=== PATIENT | male | born 1945 | race Caucasian/White ===

== ENCOUNTER 2018-04-25 10:22 | Inpatient (IN) ==
[2018-04-25] MEDS ORDERED: Artificial Tears SOLN 15 ML BOTTLE BOTH EYES PRN (13:09)
[2018-04-25] MEDS ORDERED: Naloxone 0.4 MG/ML INJ IVP PRN (13:09)
--- NOTE | 2018-04-25 14:14 | Pulmonology History & Physical ---
<Rickey Orellana W - Last Filed: 04/25/18 14:38> Date of Encounter: 04/25/18 History of Present Illness HPI: Mr. Alcantar is a 72 year old male Medications and Allergies Atorvastatin Calcium [Lipitor] 80 mg PO HS 04/25/18 [History] Baclofen 20 mg PO QID 04/25/18 [History] DULoxetine [Cymbalta] 30 mg PO DAILY 04/25/18 [History] Finasteride [Proscar] 5 mg PO DAILY 04/25/18 [History] Omeprazole [PriLOSEC] 40 mg PO DAILY 04/25/18 [History] Tamsulosin [Flomax] 0.4 mg PO DAILY 04/25/18 [History] amLODIPine [Norvasc] 5 mg PO DAILY 04/25/18 [History] diazePAM [Valium] 5 mg PO BID 04/25/18 [History] 3 Allergy/AdvReac Type Severity Reaction Status Date / Time gabapentin Allergy Unknown unknown Verified 04/25/18 14:12 morphine Allergy Unknown unknown Verified 04/25/18 14:12 All Systems: The remainder of the systems were reviewed and are negative Physical Examination Vital Signs: Vital Signs, Last 4 Hours Temp Pulse Resp BP Pulse Ox 04/25/18 14:00 49 14 107/68 100 04/25/18 13:00 98.4 F 49 14 113/70 100 04/25/18 12:45 14 100 Results - Laboratory Findings Abnormal lab findings: Abnormal lab results Lactic Acid 2.8 mmol/L (0.5-2.2) H 04/25/18 13:25 - Attending Attestation I examined this patient and my medical decision-making was reviewed with the Resident Physician. I agree with the documented findings, disposition and treatment plan as described except to the extent set forth below. We independently had [id number] contact with the patient Patient seen and examined at bedside Labs, radiology, chart personally reviewed. Management was reviewed during multidisciplinary critical care rounds. 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 The patient has a chronic left-sided weakness but otherwise no focal deficit he arouses when he is off sedation and moves his right side purposefully head CT is without acute process. U tox negative for illicit ingestions Pulm: Acute respiratory failure likely secondary to hypoventilation the patient may also be suffering from pneumonia for which he would be at increased risk for aspiration because of his encephalopathy. He is currently on the ventilator with acceptable gas exchange chest x-ray was repeated on admission to the ICU which showed satisfactory placement of endotracheal tube Cards: Borderline hypotensive at the outside hospital emergency department I suspect it was related to medication effect including labetalol and propofol he is currently hemodynamically stable and heart rate is within normal limits he is a slight elevation his lactate which we will trend his received volume resuscitation at the outside hospital for concern of possibility of sepsis. There is no evidence of cardiac ischemia at this time GI: GI prophylaxis given Nutrition: Nothing by mouth for now Renal: No evidence of acute kidney injury or metabolic acidosis UOP Monitored, Cont to Trend sCr and monitor Electrolytes. ID: Possible sepsis secondary to aspiration pneumonia he is on antimicrobials, planning to de-escalate based upon culture and sensitivities Heme/Onc: Endo: Glucose Monitored Integ/MSK: Skin Care per routine ICU Nursing Protocol to prevent ulcers. Lines: All lines examined without evidence of infection : Dispo: Remain in ICU CODE: Full the patient's power of line producer his son and his brother were updated in the ICU <Rajeev Padilla - Last Filed: 04/25/18 15:09> Date of Encounter: 04/25/18 Time of Encounter: 14:13 Assessment and Plan (1) Acute respiratory failure Current visit: Yes Status: Acute Likely related to hypoventilation the setting of overdose. Aspiration pneumonia could also be contributing. Patient is currently on the ventilator with adequate oxygenation and ventilation. Continue mechanical ventilation overnight with plan for spontaneous awake trial on spontaneous breathing trial in the morning. Qualifiers: Respiratory failure complication: unspecified whether with hypoxia or hypercapnia Qualified Code(s): J96.00 - Acute respiratory failure, unspecified whether with hypoxia or hypercapnia (2) Acute encephalopathy Current visit: Yes Status: Acute Likely multifactorial in the setting of overdose as well as possible sepsis. CT of the head showed no acute cranial nerve abnormality. Patient does have known left-sided deficits but otherwise no new focal changes. Continue sedation weaning to Leena scale 2. (3) Overdose Current visit: Yes Status: Acute Concern for overdose on baclofen. Possibly due to over treatment of the patient 's pain at home. When discussing with the son he reports no recent suicidal ideation her of her thoughts that would suggest this is an intentional self- harm event. Urine drug screen performed in the emergency department was negative. Continue supportive care. Qualifiers: Encounter type: initial encounter Injury intent: undetermined intent Qualified Code(s): T50.904A - Poisoning by unspecified drugs, medicaments and biological substances, undetermined, initial encounter (4) Sepsis Current visit: Yes Status: Acute Possible. Could be secondary to aspiration pneumonia as discussed below. Lactate elevated at 2.8 however no signs of hypotension. Patient received adequate fluid hydration outside hospital and blood pressure stable. We will repeat lactate, blood and sputum cultures pending. Qualifiers: Sepsis type: sepsis due to unspecified organism Qualified Code(s): A41.9 - Sepsis, unspecified organism (5) Aspiration pneumonia Current visit: Yes Status: Acute Patient has left lower lobe opacity on chest x-ray in given the fact that he was found down for an unknown period of time he is at risk for aspiration. Given his leukocytosis that was found at the emergency department as well as elevated lactic acid we will treat empirically with Unasyn. Sputum culture has been ordered. Qualifiers: Aspiration pneumonia type: unspecified Laterality: left Lung location: lower lobe of lung Qualified Code(s): J69.0 - Pneumonitis due to inhalation of food and vomit (6) Hypertension Current visit: Yes Status: Acute Patient was hypertensive upon arrival to the emergency department however he became hypotensive, likely related to medication. Is normotensive at this time. We will hold home antihypertensives Qualifiers: Hypertension type: essential hypertension Qualified Code(s): I10 - Essential (primary) hypertension (7) GERD (gastroesophageal reflux disease) Current visit: Yes Status: Acute Protonix 40 mg IV daily while intubated for stress ulcer prophylaxis Qualifiers: Esophagitis presence: esophagitis presence not specified Qualified Code(s) : K21.9 - Gastro-esophageal reflux disease without esophagitis (8) History of CVA (cerebrovascular accident) Current visit: Yes Status: Acute With chronic left-sided deficits. Currently intubated and sedated so full neurologic exam is limited but upon arrival patient was awake and did not appear to have any new focal deficits. Head CT reviewed from [facility] showed no acute cranial process, CT of the cervical spine was also unremarkable. (9) DVT prophylaxis Current visit: Yes Status: Acute Heparin 5000 units subcutaneous twice a day History of Present Illness Chief complaint: AMS HPI: Mr. Alcantar is a 72 year old male with history of hypertension, CVA presented to outside hospital with altered mental status. Patient is currently intubated and sedated so history is obtained from the patient's son and brother as well as the medical record. Per the son's report the patient had been in his normal state of health recently although he did state that yesterday he seemed a little more out of it and was attempting to take extra doses of his baclofen. He was reporting pain in his left hip. He was with someone in the home yesterday afternoon who stated he was trying to take extra baclofen. When that person left he was in his normal state and then that person arrived this morning and found him very difficult to arouse and laying on the floor. His the room he was in was in disarray and there were open baclofen bottles. She was transported to the emergency department and remains somnolent and altered the decision was made to intubate. A short was apparently hypertensive on presentation and after rapid sequence intubation along with 2 doses of IV Lopressor he became hypotensive. Upon arrival to this facility patient's vital signs are stable. Past Med Surg Social Fam HX - Social History Smoking Status: Unknown if ever smoked ROS unobtainable: due to endotracheal tube All Systems: The remainder of the systems were reviewed and are negative Physical Examination Vital Signs: Vital Signs, Last 4 Hours Resp Pulse Ox 04/25/18 12:45 14 100 General appearance: comatose ENT: oropharynx moist Neck: supple Effort: normal Auscultation: bilateral: other Cardiovascular: other (regular rhythm, bradycardia) Gastrointestinal: normoactive bowel sounds Extremities: no cyanosis, no edema, no clubbing pupils equal and round, unable to assess due to mental status, other ( Contractures and flaccid paralysis noted to the left upper and lower extremity) Results - Laboratory Findings Abnormal lab findings: Abnormal lab results Lactic Acid 2.8 mmol/L (0.5-2.2) H 04/25/18 13:25
[2018-04-25 14:40] LABS: ABG Base Excess 1 mEq/L (-2 to 3); ABG HCO3 25 mEq/L (21-27); ABG Oxygen Saturation 98 % (95-98); ABG PCO2 38 mmHg (35-45); ABG PH 7.43 pH Units (7.32-7.45); ABG PO2 107 mmHg (85-104); ABG TCO2 26 mEq/L (20-26); Blood Gas Modality ASSIST CONTROL; Blood Gas PEEP 5 cm H2O; Blood Gas Respiration Rate 14; Blood Gas VT 500 cc
[2018-04-25 15:05] LABS: Basophils % 0.2 %; Hematocrit 42.1 % (37.5-50.1); Immature Granulocytes % 0.4 % (0-4); Lymphocytes # 0.9 K/mcL (0.6-4.6); Lymphocytes % 6.5 %; Mean Corpuscular HGB Conc 33.3 g/dL (31.6-35.5); Mean Corpuscular Hemoglobin 29.7 pg (28.0-33.3); Mean Corpuscular Volume 89.4 fL (83.0-100.0); Monocytes # 0.8 K/mcL (0.0-1.3); Monocytes % 6.2 %; Neutrophils # 11.4 K/mcL (1.6-8.9); Platelet Count 153 K/mcL (140-400); Red Blood Count 4.71 M/mcL (4.19-5.50); Red Cell Distribution Width 12.8 % (11.5-14.5); Segmented Neutrophils % 86.7 %
[2018-04-25 15:07] LABS: Prothrombin Time 11.8 Seconds (9.4-12.1)
[2018-04-25 15:14] LABS: Alanine Aminotransferase 14 Units/L (7-52); Albumin/Globulin Ratio 1.5 (1.1-2.2); Alkaline Phosphatase 83 Units/L (34-104); Aspartate Amino Transferase 19 Units/L (13-39); BUN/Creatinine Ratio 17 (6-26); Bilirubin,Direct 0.1 mg/dL (0.0-0.2); Bilirubin,Indirect 0.4 mg/dL (0.0-1.2); Bilirubin,Total 0.5 mg/dL (0.3-1.0); Blood Urea Nitrogen 18 mg/dL (8-23); Calcium 8.7 mg/dL (8.6-10.3); Carbon Dioxide 28 mEq/L (23-29); Chloride 107 mEq/L (98-107); Globulin 2.7 g/dL (2.4-3.5); Glucose 146 mg/dL (70-105); Magnesium 1.8 mg/dL (1.6-2.6); Osmolality,Calculated 297 (280-300); Potassium 4.1 mEq/L (3.5-5.1); Sodium 141 mEq/L (136-145); Total Protein 6.7 g/dL (6.4-8.9); eGFR For Non-African Americans > 60 (> 60)
--- NOTE | 2018-04-25 16:33 | Sepsis Event Note ---
Sepsis Reassessment Note - Evaluation Sepsis Screen: No Definite Risk Current Stage of Sepsis: sepsis (possible) Possible Source of Sepsis: pulmonary - Focused Exam Date of Encounter: 04/25/18 Time of Encounter: 16:31 Vital Signs: Vital Signs Temp Pulse Resp BP Pulse Ox 04/25/18 16:06 14 100 04/25/18 16:00 45 14 118/70 100 04/25/18 15:57 98.9 F 04/25/18 15:00 45 14 103/64 100 04/25/18 14:00 49 14 107/68 100 04/25/18 13:00 98.4 F 48 14 113/70 100 04/25/18 12:45 14 100 Respiratory Exam: Present: decreased breath sounds Cardiovascular Exam: Present: bradycardia Capillary Refill: < 2 seconds Peripheral Pulse Strength: 3+ normal Peripheral Pulse Location: Radial Skin Exam: normal turgor - Reassessment Comments Comments: Patient remained stable at this time with stable blood pressure not requiring vasopressor support. Sepsis remains possible but felt to be less likely. Continue to closely monitor the patient.
[2018-04-25] MEDS: *HR* Heparin 5,000 UNIT/ML VIAL SQ SCH (17:40)
[2018-04-25] MEDS: Ampicillin/Sulbactam 3,000 MG in 0.9 % Sodium Chloride Mini Bag 100 ML IVPB SCH ×2 (17:40→23:24)
[2018-04-25] MEDS: Artificial Tears SOLN 15 ML BOTTLE BOTH EYES SCH ×3 (17:40→23:27)
[2018-04-25] MEDS: Chlorhexidine Rinse 15 ML MOUTHWASH MM SCH (20:19)
[2018-04-26] MEDS: FentaNYL (PF) 1,000 MCG in 0.9 % Sodium Chloride 80 ML IVC SCH ×2 (00:17→16:58)
[2018-04-26] MEDS: Artificial Tears SOLN 15 ML BOTTLE BOTH EYES SCH ×6 (03:53→23:26)
[2018-04-26 05:01] LABS: ABG Base Excess 2 mEq/L (-2 to 3); ABG HCO3 27 mEq/L (21-27); ABG Oxygen Saturation 97 % (95-98); ABG PCO2 39 mmHg (35-45); ABG PH 7.44 pH Units (7.32-7.45); ABG PO2 92 mmHg (85-104); ABG TCO2 28 mEq/L (20-26); Blood Gas Modality PRVC; Blood Gas PEEP 5 cm H2O; Blood Gas Respiration Rate 14; Blood Gas VT 500 cc
[2018-04-26] MEDS: *HR* Heparin 5,000 UNIT/ML VIAL SQ SCH ×2 (05:18→17:34)
[2018-04-26] MEDS: Ampicillin/Sulbactam 3,000 MG in 0.9 % Sodium Chloride Mini Bag 100 ML IVPB SCH ×4 (05:18→23:28)
[2018-04-26 06:07] LABS: Basophils % 0.3 %; Eosinophils % 0.1 %; Hemoglobin 14.2 g/dL (12.9-16.9); Immature Granulocytes % 0.5 % (0-4); Lymphocytes # 1.1 K/mcL (0.6-4.6); Mean Corpuscular HGB Conc 33.8 g/dL (31.6-35.5); Mean Corpuscular Volume 88.6 fL (83.0-100.0); Mean Platelet Volume 10.9 fL (9.4-12.4); Monocytes # 0.6 K/mcL (0.0-1.3); Monocytes % 6.3 %; Neutrophils # 8.2 K/mcL (1.6-8.9); Platelet Count 146 K/mcL (140-400); Red Blood Count 4.74 M/mcL (4.19-5.50); Segmented Neutrophils % 81.8 %
[2018-04-26 06:17] LABS: INR 1.1
[2018-04-26 06:25] LABS: Alanine Aminotransferase 14 Units/L (7-52); Albumin 4.1 g/dL (3.5-5.7); Albumin/Globulin Ratio 1.3 (1.1-2.2); Alkaline Phosphatase 92 Units/L (34-104); Aspartate Amino Transferase 25 Units/L (13-39); BUN/Creatinine Ratio 18 (6-26); Bilirubin,Direct 0.2 mg/dL (0.0-0.2); Bilirubin,Indirect 0.5 mg/dL (0.0-1.2); Bilirubin,Total 0.7 mg/dL (0.3-1.0); Blood Urea Nitrogen 15 mg/dL (8-23); Calcium 9.2 mg/dL (8.6-10.3); Carbon Dioxide 25 mEq/L (23-29); Chloride 107 mEq/L (98-107); Globulin 3.2 g/dL (2.4-3.5); Glucose 127 mg/dL (70-105); Osmolality,Calculated 294 (280-300); Potassium 3.3 mEq/L (3.5-5.1); Sodium 141 mEq/L (136-145); Total Protein 7.3 g/dL (6.4-8.9); eGFR For Non-African Americans > 60 (> 60)
[2018-04-26] MEDS ORDERED: Dexmedetomidine HCl 400 MCG/100 ML MLS IVC SCH (07:15)
--- NOTE | 2018-04-26 07:41 | Pulmonology Progress Note ---
<ReynaRickey W - Last Filed: 04/26/18 08:14> Date of Encounter: 04/26/18 Objective PUL Vital signs: Last Vital Signs Temp 98.6 F 04/26/18 07:44 Pulse 61 04/26/18 08:00 Resp 12 04/26/18 08:00 BP 170/91 04/26/18 08:00 Pulse Ox 97 04/26/18 08:00 Ventilator Settings Ventilator Settings: Ventilator Settings, Last 8 Hours Ventilator Tidal Volume 500 Setting Ventilator Tidal Volume 500 Setting Ventilator Tidal Volume 500 Setting Ventilator Tidal Volume 500 Setting Ventilator Tidal Volume 500 Setting Ventilator Tidal Volume 500 Setting Ventilator Tidal Volume 500 Setting Ventilator Tidal Volume 500 Setting Ventilator Tidal Volume 500 Setting Ventilator Tidal Volume 500 Setting Ventilator Tidal Volume 500 Setting Ventilator Tidal Volume 500 Setting Ventilator Tidal Volume 500 Setting Ventilator Respiratory Rate 14 Setting Ventilator Respiratory Rate 14 Setting Ventilator Respiratory Rate 14 Setting Ventilator Respiratory Rate 14 Setting Ventilator Respiratory Rate 14 Setting Ventilator Respiratory Rate 14 Setting Ventilator Respiratory Rate 14 Setting Ventilator Respiratory Rate 14 Setting Ventilator Respiratory Rate 14 Setting Ventilator Respiratory Rate 14 Setting Ventilator Respiratory Rate 14 Setting Ventilator Respiratory Rate 14 Setting Ventilator Respiratory Rate 14 Setting Actual Respiratory Rate 18 Actual Respiratory Rate 18 Actual Respiratory Rate 18 Actual Respiratory Rate 18 Actual Respiratory Rate 14 Actual Respiratory Rate 14 Actual Respiratory Rate 14 Actual Respiratory Rate 14 Actual Respiratory Rate 14 Actual Respiratory Rate 14 Actual Respiratory Rate 14 Actual Respiratory Rate 14 Positive End Expiratory 5 Pressure Positive End Expiratory 5 Pressure Positive End Expiratory 5 Pressure Positive End Expiratory 5 Pressure Positive End Expiratory 5 Pressure Positive End Expiratory 5 Pressure Positive End Expiratory 5 Pressure Positive End Expiratory 5 Pressure Positive End Expiratory 5 Pressure Positive End Expiratory 5 Pressure Positive End Expiratory 5 Pressure Positive End Expiratory 5 Pressure Positive End Expiratory 5 Pressure Peak Inspiratory Airway 7.2 Pressure Peak Inspiratory Airway 17 Pressure Peak Inspiratory Airway 7.2 Pressure Peak Inspiratory Airway 7.2 Pressure Peak Inspiratory Airway 25 Pressure Peak Inspiratory Airway 26 Pressure Peak Inspiratory Airway 28 Pressure Peak Inspiratory Airway 27 Pressure Peak Inspiratory Airway 27 Pressure Peak Inspiratory Airway 29 Pressure Peak Inspiratory Airway 20 Pressure Peak Inspiratory Airway 20 Pressure Results - Laboratory Findings CBC and BMP: 04/26/18 05:48 04/26/18 05:48 ABG ABG pH 7.44 pH Units (7.32-7.45) 04/26/18 04:55 ABG pCO2 39 mmHg (35-45) 04/26/18 04:55 ABG pO2 92 mmHg (85-104) 04/26/18 04:55 ABG O2 Saturation 97 % (95-98) 04/26/18 04:55 PT/INR, D-dimer PT 12.0 Seconds (9.4-12.1) 04/26/18 05:48 Abnormal lab findings: Abnormal lab results ABG Total CO2 28 mEq/L (20-26) H 04/26/18 04:55 Potassium 3.3 mEq/L (3.5-5.1) L 04/26/18 05:48 Glucose 127 mg/dL (70-105) H 04/26/18 05:48 POC Glucose 162 mg/dL (70-99) H 04/25/18 23:33 Troponin I 0.04 ng/mL (< 0.04) H* 04/25/18 19:25 - Microbiology Findings Microbiology Findings: Microbiology, Last 48 Hours 04/25/18 13:36 Blood Culture - Preliminary Peripheral Venipuncture Culture is incubating and being continuously monitored for growth. Final report to follow. 04/25/18 13:36 Blood Culture - Preliminary Peripheral Venipuncture Culture is incubating and being continuously monitored for growth. Final report to follow. - Clinical Findings Intake & Output: Intake & Output 04/25/18 04/26/18 04/26/18 23:59 07:59 15:59 Intake Total 214 / 214 170.5 / 170.5 Output Total 175 / 175 525 / 525 Balance 39 / 39 -354.5 / -354.5 Weight 88 kg Consult Discharge Plan - Plan Referrals: Stan Ambriz MD [Primary Care Provider] - - Attending Attestation I examined this patient and my medical decision-making was reviewed with the Resident Physician. I agree with the documented findings, disposition and treatment plan as described except to the extent set forth below. We independently had [id number] contact with the patient Patient seen and examined at bedside Labs, radiology, chart personally reviewed. Management was reviewed during multidisciplinary critical care rounds. PARK ATTENDANT: Patient remains encephalopathic with significant agitation during spontaneous awake trial today we will start Precedex and attempt to decrease/ stop propofol and continue low-dose fentanyl at this time. Likely restart low dose of baclofen to prevent withdrawal Pulm: Respiratory failure secondary to encephalopathy possibility of underlying aspiration pneumonia remains on the vent with acceptable gas exchange not a candidate for spontaneous breathing trial because he did not pass spontaneous awake trial we will reassess tomorrow or later in the day if agitation improved Cards: Hemodynamically stable continue to monitor GI: GI prophylaxis given Nutrition: Start enteral nutrition per dietary recommendations Renal: UOP Monitored, Cont to Trend sCr and monitor Electrolytes. ID: Possibility of aspiration pneumonia he is on appropriate antimicrobials for this with planned to de-escalate over the next 24-48 hours based upon cultures Heme/Onc: DVT prophylaxis given Endo: Glucose Monitored Integ/MSK: Skin Care per routine ICU Nursing Protocol to prevent ulcers. Lines: All lines examined without evidence of infection : Dispo: Remain in ICU today for ventilator management CODE: Full <Bryce Shaw - Last Filed: 04/26/18 14:56> Date of Encounter: 04/26/18 Time of Encounter: 07:45 Assessment and Plan (1) Acute encephalopathy Current Visit: Yes Status: Acute - Patient was admitted to the ICU because of acute encephalopathy. Etiology currently unknown. Likely due to baclofen overdose, patient was given propofol in the ED prior to intubation which can also contribute to encephalopathy. Patient also takes Cymbalta at home and that could also be a potential cause for his encephalopathy. Patient's urine drug screen was negative in the ED. His head CT was negative for any intracranial masses or hemorrhages. Currently patient is intubated and is getting propofol and fentanyl, RASS score : -4. We have tried to wean him off propofol but every time we do that, he gets agitated. - Patient respondsd to sternal rub and his pupils are reactive to light. However he is not responding to any commands. - continue to monitor signs of agitation. Allow time for the baclofen to get out of the system which can take up to 24-30 hours. Aim for weaning off the propofol if that makes the patient agitated. - Delirium precautions (2) Acute respiratory failure Current Visit: Yes Status: Acute - patient presented to the ICU because of acute respiratory failure and AMS requiring intubation. Currently he 's on ventilator with PEEP 5, FiO2: 30%. patient has been showing signs of agitation when he is weaned the pressors - we are going to make an attempt to wean off is sedatives in the near future to put him through CPAP trial. e Qualifiers: Respiratory failure complication: unspecified whether with hypoxia or hypercapnia Qualified Code(s): J96.00 - Acute respiratory failure, unspecified whether with hypoxia or hypercapnia (3) Pneumonia Current Visit: Yes Status: Acute - Patient's chest x-ray showed stable lungs with small left effusion with concerns for aspiration pneumonia. He was leukocytotic on admission with WBC: 13.1. He has been empirically given Unasyn. - On physical exam he is afebrile but does have bilateral wheezing, WBC is trending down (10.0), day 2 of Unasyn (3000mg) - His sputum/ blood cultures are pending. Going to de-escalate his antibiotics once we have the results from his cultures Qualifiers: Qualified Code(s): J18.9 - Pneumonia, unspecified organism (4) Sepsis Current Visit: Yes Status: Acute - Patient presented with leukocytosis (13.1), elevated lactate (2.7), with concerns for sepsis. His blood pressure was normal. HE received 2L Bolus NaCl in the ED. - currently source is likely due his aspiration pneumonia, he's on day 2 of Unasyn. -currently sepsis seems to have resolved. His white blood count is 10, repeat lactate is normal (1.7), patient is afebrile and is normotensive - sputum/blood cultures are pending, repeat lactate normal . de-escalate Abx once we have the culture sensitivities. Qualifiers: Sepsis type: sepsis due to unspecified organism Qualified Code(s): A41.9 - Sepsis, unspecified organism (5) GERD (gastroesophageal reflux disease) Current Visit: Yes Status: Acute - holding off on all his PO medications because the patient is intubated. - protonix 40 mg IV Qualifiers: Esophagitis presence: esophagitis presence not specified Qualified Code(s) : K21.9 - Gastro-esophageal reflux disease without esophagitis (6) Hypertension Current Visit: Yes Status: Acute - Has a history of hypertension. Takes 5 mg Norvasc at home. - Patient has been periodically hypotensive since he was admitted to ICU likely due to overdose of baclofen or usage of propofol for sedation overnight. We will hold off on his antihypertensive medication as of now. - Qualifiers: Hypertension type: essential hypertension Qualified Code(s): I10 - Essential (primary) hypertension (7) CVA (cerebral vascular accident) Current Visit: Yes Status: Acute -Patient has a history of CVA. He has a chronic left-sided deficits with foot drop. During this admission, patient's head CT at [facility] showed no evidence of intracranial hemorrhage, or masses. -It has been difficult to do a comprehensive neurological exam on the patient because he is intubated. - Neurological exam will be done once the patient is extubated. Qualifiers: Qualified Code(s): I63.9 - Cerebral infarction, unspecified (8) DVT prophylaxis Current Visit: Yes Status: Acute - SC Heparin 5000 units Subjective Principal diagnosis: alterd mental status Interval history: This is a 72-year-old male with a past medical history of CVA, hypertension who was admitted to the ICU yesterday because of altered mental status and acute respiratory failure likely due to baclofen overdose. No acute events overnight except for the fact that patient was agitated and not following commands. He was however, responsive to sternal rub and his pupils are reactive to light. It has been sedated on propofol and fentanyl overnight. He has been bradycardic for most of his stay in ICU with HR betwene 40-50. Objective PUL Vital signs: Last Vital Signs Temp 98.9 F 04/26/18 04:00 Pulse 61 04/26/18 07:00 Resp 17 04/26/18 07:24 BP 136/80 04/26/18 07:00 Pulse Ox 97 04/26/18 07:24 General appearance: comatose Effort: mildly labored Auscultation: bilateral: wheezes Gastrointestinal: soft, non-tender, non-distended Extremities: no cyanosis, no edema, no clubbing unable to assess due to mental status Ventilator Settings Ventilator Settings: Ventilator Settings, Last 8 Hours Ventilator Tidal Volume 500 Setting Ventilator Tidal Volume 500 Setting Ventilator Tidal Volume 500 Setting Ventilator Tidal Volume 500 Setting Ventilator Tidal Volume 500 Setting Ventilator Tidal Volume 500 Setting Ventilator Tidal Volume 500 Setting Ventilator Tidal Volume 500 Setting Ventilator Tidal Volume 500 Setting Ventilator Tidal Volume 500 Setting Ventilator Tidal Volume 500 Setting Ventilator Tidal Volume 500 Setting Ventilator Tidal Volume 500 Setting Ventilator Respiratory Rate 14 Setting Ventilator Respiratory Rate 14 Setting Ventilator Respiratory Rate 14 Setting Ventilator Respiratory Rate 14 Setting Ventilator Respiratory Rate 14 Setting Ventilator Respiratory Rate 14 Setting Ventilator Respiratory Rate 14 Setting Ventilator Respiratory Rate 14 Setting Ventilator Respiratory Rate 14 Setting Ventilator Respiratory Rate 14 Setting Ventilator Respiratory Rate 14 Setting Ventilator Respiratory Rate 14 Setting Ventilator Respiratory Rate 14 Setting Actual Respiratory Rate 18 Actual Respiratory Rate 18 Actual Respiratory Rate 18 Actual Respiratory Rate 14 Actual Respiratory Rate 14 Actual Respiratory Rate 14 Actual Respiratory Rate 14 Actual Respiratory Rate 14 Actual Respiratory Rate 14 Actual Respiratory Rate 14 Actual Respiratory Rate 14 Actual Respiratory Rate 14 Positive End Expiratory 5 Pressure Positive End Expiratory 5 Pressure Positive End Expiratory 5 Pressure Positive End Expiratory 5 Pressure Positive End Expiratory 5 Pressure Positive End Expiratory 5 Pressure Positive End Expiratory 5 Pressure Positive End Expiratory 5 Pressure Positive End Expiratory 5 Pressure Positive End Expiratory 5 Pressure Positive End Expiratory 5 Pressure Positive End Expiratory 5 Pressure Positive End Expiratory 5 Pressure Peak Inspiratory Airway 17 Pressure Peak Inspiratory Airway 7.2 Pressure Peak Inspiratory Airway 7.2 Pressure Peak Inspiratory Airway 25 Pressure Peak Inspiratory Airway 26 Pressure Peak Inspiratory Airway 28 Pressure Peak Inspiratory Airway 27 Pressure Peak Inspiratory Airway 27 Pressure Peak Inspiratory Airway 29 Pressure Peak Inspiratory Airway 20 Pressure Peak Inspiratory Airway 20 Pressure Peak Inspiratory Airway 19 Pressure Results - Laboratory Findings CBC and BMP: 04/26/18 05:48 04/26/18 05:48 ABG ABG pH 7.44 pH Units (7.32-7.45) 04/26/18 04:55 ABG pCO2 39 mmHg (35-45) 04/26/18 04:55 ABG pO2 92 mmHg (85-104) 04/26/18 04:55 ABG O2 Saturation 97 % (95-98) 04/26/18 04:55 PT/INR, D-dimer PT 12.0 Seconds (9.4-12.1) 04/26/18 05:48 Abnormal lab findings: Abnormal lab results ABG Total CO2 28 mEq/L (20-26) H 04/26/18 04:55 Potassium 3.3 mEq/L (3.5-5.1) L 04/26/18 05:48 Glucose 127 mg/dL (70-105) H 04/26/18 05:48 POC Glucose 162 mg/dL (70-99) H 04/25/18 23:33 Troponin I 0.04 ng/mL (< 0.04) H* 04/25/18 19:25 - Microbiology Findings Microbiology Findings: Microbiology, Last 48 Hours 04/25/18 13:36 Blood Culture - Preliminary Peripheral Venipuncture Culture is incubating and being continuously monitored for growth. Final report to follow. 04/25/18 13:36 Blood Culture - Preliminary Peripheral Venipuncture Culture is incubating and being continuously monitored for growth. Final report to follow. - Clinical Findings Intake & Output: Intake & Output 04/25/18 04/25/18 04/26/18 15:59 23:59 07:59 Intake Total 214 / 214 170.5 / 170.5 Output Total 400 / 400 175 / 175 375 / 375 Balance -400 / -400 39 / 39 -204.5 / -204.5 Weight 88.4 kg 88 kg
[2018-04-26] MEDS: Chlorhexidine Rinse 15 ML MOUTHWASH MM SCH ×2 (07:46→20:53)
[2018-04-26] MEDS: Pantoprazole 40 MG VIAL IVP SCH (07:46)
[2018-04-26] MEDS ORDERED: Potassium Chloride Elixir 20 MEQ/15 ML UDC GTUBE ONE (08:12)
[2018-04-26] MEDS: Baclofen 10 MG TABLET PO SCH ×3 (10:24→20:53)
[2018-04-26 14:52] LABS: Creatine Kinase 342 Units/L (30-223)
[2018-04-26 19:08] LABS: BUN/Creatinine Ratio 18 (6-26); Blood Urea Nitrogen 16 mg/dL (8-23); Calcium 8.7 mg/dL (8.6-10.3); Carbon Dioxide 26 mEq/L (23-29); Chloride 107 mEq/L (98-107); Glucose 119 mg/dL (70-105); Osmolality,Calculated 292 (280-300); Potassium 3.1 mEq/L (3.5-5.1); Sodium 140 mEq/L (136-145); eGFR For Non-African Americans > 60 (> 60)
[2018-04-27] MEDS: Artificial Tears SOLN 15 ML BOTTLE BOTH EYES SCH ×6 (04:24→20:09)
[2018-04-27] MEDS: FentaNYL (PF) 1,000 MCG in 0.9 % Sodium Chloride 80 ML IVC SCH (04:26)
[2018-04-27 04:46] LABS: Basophils % 0.4 %; Eosinophils % 0.4 %; Hematocrit 42.7 % (37.5-50.1); Hemoglobin 14.4 g/dL (12.9-16.9); Immature Granulocytes % 0.2 % (0-4); Immature Platelets 5.7 % (1.1-6.1); Lymphocytes # 1.9 K/mcL (0.6-4.6); Lymphocytes % 20.4 %; Mean Corpuscular HGB Conc 33.7 g/dL (31.6-35.5); Mean Platelet Volume 10.8 fL (9.4-12.4); Monocytes # 0.9 K/mcL (0.0-1.3); Monocytes % 9.4 %; Neutrophils # 6.5 K/mcL (1.6-8.9); Platelet Count 126 K/mcL (140-400); Red Cell Distribution Width 13.1 % (11.5-14.5); Segmented Neutrophils % 69.2 %
[2018-04-27 05:05] LABS: BUN/Creatinine Ratio 18 (6-26); Blood Urea Nitrogen 15 mg/dL (8-23); Calcium 9.1 mg/dL (8.6-10.3); Carbon Dioxide 28 mEq/L (23-29); Chloride 105 mEq/L (98-107); Glucose 115 mg/dL (70-105); Osmolality,Calculated 288 (280-300); Potassium 3.1 mEq/L (3.5-5.1); Sodium 138 mEq/L (136-145); eGFR For Non-African Americans > 60 (> 60)
[2018-04-27 05:28] LABS: ABG Base Excess 2 mEq/L (-2 to 3); ABG HCO3 25 mEq/L (21-27); ABG Oxygen Saturation 97 % (95-98); ABG PCO2 34 mmHg (35-45); ABG PH 7.48 pH Units (7.32-7.45); ABG PO2 86 mmHg (85-104); ABG TCO2 26 mEq/L (20-26); Blood Gas Modality PRVC; Blood Gas PEEP 5 cm H2O; Blood Gas Respiration Rate 14; Blood Gas VT 500 cc
[2018-04-27] MEDS ORDERED: Potassium Chloride Elixir 20 MEQ/15 ML UDC GTUBE ONE (06:13)
[2018-04-27] MEDS: Ampicillin/Sulbactam 3,000 MG in 0.9 % Sodium Chloride Mini Bag 100 ML IVPB SCH ×2 (06:17→11:35)
[2018-04-27] MEDS: *HR* Heparin 5,000 UNIT/ML VIAL SQ SCH ×2 (06:20→19:34)
--- NOTE | 2018-04-27 07:54 | Pulmonology Progress Note ---
<ReynaRickey W - Last Filed: 04/27/18 10:57> Date of Encounter: 04/27/18 Objective PUL Vital signs: Last Vital Signs Temp 98.5 F 04/27/18 07:38 Pulse 79 04/27/18 09:00 Resp 20 04/27/18 09:00 BP 151/79 04/27/18 09:00 Pulse Ox 96 04/27/18 09:00 Ventilator Settings Ventilator Settings: Ventilator Settings, Last 8 Hours Ventilator Tidal Volume 500 Setting Ventilator Tidal Volume 500 Setting Ventilator Tidal Volume 500 Setting Ventilator Tidal Volume 500 Setting Ventilator Tidal Volume 500 Setting Ventilator Tidal Volume 500 Setting Ventilator Tidal Volume 500 Setting Ventilator Respiratory Rate 14 Setting Ventilator Respiratory Rate 14 Setting Ventilator Respiratory Rate 14 Setting Ventilator Respiratory Rate 14 Setting Ventilator Respiratory Rate 14 Setting Ventilator Respiratory Rate 14 Setting Ventilator Respiratory Rate 14 Setting Actual Respiratory Rate 18 Actual Respiratory Rate 14 Actual Respiratory Rate 14 Actual Respiratory Rate 14 Actual Respiratory Rate 14 Actual Respiratory Rate 14 Actual Respiratory Rate 14 Positive End Expiratory 5 Pressure Positive End Expiratory 5 Pressure Positive End Expiratory 5 Pressure Positive End Expiratory 5 Pressure Positive End Expiratory 5 Pressure Positive End Expiratory 5 Pressure Positive End Expiratory 5 Pressure Positive End Expiratory 5 Pressure Peak Inspiratory Airway 30 Pressure Peak Inspiratory Airway 27 Pressure Peak Inspiratory Airway 26 Pressure Peak Inspiratory Airway 27 Pressure Peak Inspiratory Airway 29 Pressure Peak Inspiratory Airway 32 Pressure Peak Inspiratory Airway 30 Pressure Results - Laboratory Findings CBC and BMP: 04/27/18 04:25 04/27/18 04:25 ABG ABG pH 7.48 pH Units (7.32-7.45) H 04/27/18 05:25 ABG pCO2 34 mmHg (35-45) L 04/27/18 05:25 ABG pO2 86 mmHg (85-104) 04/27/18 05:25 ABG O2 Saturation 97 % (95-98) 04/27/18 05:25 PT/INR, D-dimer PT 12.0 Seconds (9.4-12.1) 04/26/18 05:48 Abnormal lab findings: Abnormal lab results Plt Count 126 K/mcL (140-400) L 04/27/18 04:25 ABG pH 7.48 pH Units (7.32-7.45) H 04/27/18 05:25 ABG pCO2 34 mmHg (35-45) L 04/27/18 05:25 Potassium 3.1 mEq/L (3.5-5.1) L 04/27/18 04:25 Glucose 115 mg/dL (70-105) H 04/27/18 04:25 POC Glucose 112 mg/dL (70-99) H 04/26/18 18:31 Creatine Kinase 342 Units/L (30-223) H 04/26/18 05:48 Troponin I 0.04 ng/mL (< 0.04) H* 04/25/18 19:25 - Microbiology Findings Microbiology Findings: Microbiology, Last 48 Hours 04/26/18 06:21 Sputum Culture - Preliminary Sputum 04/25/18 13:36 Blood Culture - Preliminary Peripheral Venipuncture Culture is incubating and being continuously monitored for growth. Final report to follow. 04/25/18 13:36 Blood Culture - Preliminary Peripheral Venipuncture Culture is incubating and being continuously monitored for growth. Final report to follow. - Clinical Findings Intake & Output: Intake & Output 04/26/18 04/27/18 04/27/18 23:59 07:59 15:59 Intake Total 462 / 462 1047 / 1047 Output Total 400 / 400 500 / 500 Balance 62 / 62 547 / 547 Weight 85.9 kg Consult Discharge Plan - Plan Referrals: Stan Ambriz MD [Primary Care Provider] - - Attending Attestation I examined this patient and my medical decision-making was reviewed with the Resident Physician. I agree with the documented findings, disposition and treatment plan as described except to the extent set forth below. We independently had [id number] contact with the patient Patient seen and examined at bedside Labs, radiology, chart personally reviewed. Management was reviewed during multidisciplinary critical care rounds. 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 He is able to follow some simple commands past spontaneous awake trial on sedation is been turned off CONTINUE baclofen to prevent withdrawal Pulm: Liberated from the vent acceptable oxygenation continue to monitor Cards: Blood pressure monitored and his elevated we will start antihypertensives for this GI: Stop PPI Nutrition: Advance diet as tolerated once passes speech and swallow eval Renal: UOP Monitored, Cont to Trend sCr and monitor Electrolytes. ID: Continue antimicrobials for another 24 hours and would stop if no further evidence of infection Heme/Onc: DVT prophylaxis given Endo: Glucose Monitored Integ/MSK: Skin Care per routine ICU Nursing Protocol to prevent ulcers. Lines: All lines examined without evidence of infection : Dispo: Remain in ICU today can likely transition to floor tomorrow CODE: Full family updated (Daughter) over the phone <Bryce Shaw - Last Filed: 04/27/18 16:19> Date of Encounter: 04/27/18 Time of Encounter: 08:25 Assessment and Plan (1) Acute encephalopathy Current Visit: Yes Status: Acute 04/28: - appears to be resolving. Patient is more alert, opens his eyes to voice but still doesn't follow commands (RASS score -1). He passed the spontaneous awake trial and is currently extubated, satting at 96% on 4LNC. - Patient was admitted to the ICU because of acute encephalopathy on 04/26. Etiology currently unknown. Likely due to baclofen overdose, patient was given propofol in the ED prior to intubation which can also contribute to encephalopathy. Patient also takes Cymbalta at home and that could also be a potential cause for his encephalopathy. Patient's urine drug screen was negative in the ED. His head CT was negative for any intracranial masses or hemorrhages. - Holding PO balcofen till he passes Swallow Evaluation . 04/27: - Patient was admitted to the ICU because of acute encephalopathy. Etiology currently unknown. Likely due to baclofen overdose, patient was given propofol in the ED prior to intubation which can also contribute to encephalopathy. Patient also takes Cymbalta at home and that could also be a potential cause for his encephalopathy. Patient's urine drug screen was negative in the ED. His head CT was negative for any intracranial masses or hemorrhages. Currently patient is intubated and is getting propofol and fentanyl, RASS score : -4. We have tried to wean him off propofol but every time we do that, he gets agitated. - Patient respondsd to sternal rub and his pupils are reactive to light. However he is not responding to any commands. - continue to monitor signs of agitation. Allow time for the baclofen to get out of the system which can take up to 24-30 hours. Aim for weaning off the propofol if that doesn't make the patient agitated. - Delirium precautions (2) Acute respiratory failure Current Visit: Yes Status: Acute 04/27: - patient presented to the ICU because of acute respiratory failure and AMS requiring intubation. likely due to baclofen overdose but we are not completely sure yet. Concerns of aspiration pneumonia as well , WBC trending down 12.1-> 9.4 - he has been extubated today currently satting at 96% on 4L NC, day 3 of Unasyn 04/26: - patient presented to the ICU because of acute respiratory failure and AMS requiring intubation. Currently he 's on ventilator with PEEP 5, FiO2: 30%. patient has been showing signs of agitation when he is weaned of the sedative - we are going to make an attempt to wean off is sedatives in the near future to put him through CPAP trial. e Qualifiers: Respiratory failure complication: unspecified whether with hypoxia or hypercapnia Qualified Code(s): J96.00 - Acute respiratory failure, unspecified whether with hypoxia or hypercapnia (3) Pneumonia Current Visit: Yes Status: Acute - Patient's chest x-ray from 2 days ago showed stable lungs with small left effusion with concerns for aspiration pneumonia. He was leukocytotic on admission which has resolved. He has been empirically given Unasyn. - On physical exam he is afebrile but does have bilateral wheezing, WBC is trending down (10.0), day 3 of Unasyn (3000mg) - His sputum/ blood cultures are pending. Going to discontinue his antibiotics in the next 24 hrs if we do not see any signs of any potential infection Qualifiers: Qualified Code(s): J18.9 - Pneumonia, unspecified organism (4) Sepsis Current Visit: Yes Status: Acute - Currently sepsis seems to have resolved. WBC: 9.4, lactate : 1.7 - Patient presented with leukocytosis (13.1), elevated lactate (2.7), with concerns for sepsis. His blood pressure was normal. He received 2L Bolus NaCl in the ED. - currently source is likely due his aspiration pneumonia, he's on day 3 of Unasyn. - patient is afebrile and is normotensive - discontinue Abx in the next 24 hrs if no evidence of any infection Qualifiers: Sepsis type: sepsis due to unspecified organism Qualified Code(s): A41.9 - Sepsis, unspecified organism (5) GERD (gastroesophageal reflux disease) Current Visit: Yes Status: Acute - holding off on all his PO meds till the patient passes speech/swallow evaluation Qualifiers: Esophagitis presence: esophagitis presence not specified Qualified Code(s) : K21.9 - Gastro-esophageal reflux disease without esophagitis (6) Hypertension Current Visit: Yes Status: Acute - Has a history of hypertension. Takes 5 mg Norvasc at home. - currently has IV hydralazine (10mL) and IV metoprolol( 5m) PRN if he gets hypertensive Qualifiers: Hypertension type: essential hypertension Qualified Code(s): I10 - Essential (primary) hypertension (7) CVA (cerebral vascular accident) Current Visit: Yes Status: Acute -Patient has a history of CVA. He has a chronic left-sided deficits with foot drop. During this admission, patient's head CT at [facility] showed no evidence of intracranial hemorrhage, or masses. -Today the patient opened eyes with voice but still doesn't follow any commands (RASS score : -1) . - We might consider the possibility of consulting Neurology if he doesn't come close to his neurological status . Qualifiers: Qualified Code(s): I63.9 - Cerebral infarction, unspecified (8) DVT prophylaxis Current Visit: Yes Status: Acute - SC Heparin 5000 units Subjective Principal diagnosis: alterd mental status Interval history: 04/28 no acute events overnight. Patient is off propofol and fentanyl currently extubated and is satting at spO2: 96 % on 4L NC.. He is awake , opens his eyes to voice but doesn't follow commands. He is currently not bradycardic and hypotensive. His leukocytosis was 13.1 on admission currently it is trending down to 9.4 04/27 This is a 72-year-old male with a past medical history of CVA, hypertension who was admitted to the ICU yesterday because of altered mental status and acute respiratory failure likely due to baclofen overdose. No acute events overnight except for the fact that patient was agitated and not following commands. He was however, responsive to sternal rub and his pupils are reactive to light. It has been sedated on propofol and fentanyl overnight. He has been bradycardic for most of his stay in ICU with HR betwene 40-50. Objective PUL Vital signs: Last Vital Signs Temp 98.5 F 04/27/18 07:38 Pulse 60 04/27/18 07:24 Resp 18 04/27/18 07:36 BP 154/83 04/27/18 07:00 Pulse Ox 97 04/27/18 07:44 Auscultation: bilateral: wheezes (no ronchi or rales) Cardiovascular: regular rate and rhythm (not bradycardic, no gallops , murmrus or rubs) Gastrointestinal: soft, non-tender, non-distended Extremities: no cyanosis, no edema, no clubbing unable to assess due to mental status Ventilator Settings Ventilator Settings: Ventilator Settings, Last 8 Hours Ventilator Tidal Volume 500 Setting Ventilator Tidal Volume 500 Setting Ventilator Tidal Volume 500 Setting Ventilator Tidal Volume 500 Setting Ventilator Tidal Volume 500 Setting Ventilator Tidal Volume 500 Setting Ventilator Tidal Volume 500 Setting Ventilator Tidal Volume 500 Setting Ventilator Tidal Volume 500 Setting Ventilator Tidal Volume 500 Setting Ventilator Tidal Volume 500 Setting Ventilator Respiratory Rate 14 Setting Ventilator Respiratory Rate 14 Setting Ventilator Respiratory Rate 14 Setting Ventilator Respiratory Rate 14 Setting Ventilator Respiratory Rate 14 Setting Ventilator Respiratory Rate 14 Setting Ventilator Respiratory Rate 14 Setting Ventilator Respiratory Rate 14 Setting Ventilator Respiratory Rate 14 Setting Ventilator Respiratory Rate 14 Setting Ventilator Respiratory Rate 14 Setting Actual Respiratory Rate 18 Actual Respiratory Rate 14 Actual Respiratory Rate 14 Actual Respiratory Rate 14 Actual Respiratory Rate 14 Actual Respiratory Rate 14 Actual Respiratory Rate 14 Actual Respiratory Rate 14 Actual Respiratory Rate 14 Actual Respiratory Rate 14 Actual Respiratory Rate 14 Positive End Expiratory 5 Pressure Positive End Expiratory 5 Pressure Positive End Expiratory 5 Pressure Positive End Expiratory 5 Pressure Positive End Expiratory 5 Pressure Positive End Expiratory 5 Pressure Positive End Expiratory 5 Pressure Positive End Expiratory 5 Pressure Positive End Expiratory 5 Pressure Positive End Expiratory 5 Pressure Positive End Expiratory 5 Pressure Positive End Expiratory 5 Pressure Peak Inspiratory Airway 30 Pressure Peak Inspiratory Airway 27 Pressure Peak Inspiratory Airway 26 Pressure Peak Inspiratory Airway 27 Pressure Peak Inspiratory Airway 29 Pressure Peak Inspiratory Airway 32 Pressure Peak Inspiratory Airway 30 Pressure Peak Inspiratory Airway 30 Pressure Peak Inspiratory Airway 22 Pressure Peak Inspiratory Airway 25 Pressure Peak Inspiratory Airway 22 Pressure Results - Laboratory Findings CBC and BMP: 04/27/18 04:25 04/27/18 04:25 ABG ABG pH 7.48 pH Units (7.32-7.45) H 04/27/18 05:25 ABG pCO2 34 mmHg (35-45) L 04/27/18 05:25 ABG pO2 86 mmHg (85-104) 04/27/18 05:25 ABG O2 Saturation 97 % (95-98) 04/27/18 05:25 PT/INR, D-dimer PT 12.0 Seconds (9.4-12.1) 04/26/18 05:48 Abnormal lab findings: Abnormal lab results Plt Count 126 K/mcL (140-400) L 04/27/18 04:25 ABG pH 7.48 pH Units (7.32-7.45) H 04/27/18 05:25 ABG pCO2 34 mmHg (35-45) L 04/27/18 05:25 Potassium 3.1 mEq/L (3.5-5.1) L 04/27/18 04:25 Glucose 115 mg/dL (70-105) H 04/27/18 04:25 POC Glucose 112 mg/dL (70-99) H 04/26/18 18:31 Creatine Kinase 342 Units/L (30-223) H 04/26/18 05:48 Troponin I 0.04 ng/mL (< 0.04) H* 04/25/18 19:25 - Microbiology Findings Microbiology Findings: Microbiology, Last 48 Hours 04/26/18 06:21 Sputum Culture - Preliminary Sputum 04/25/18 13:36 Blood Culture - Preliminary Peripheral Venipuncture Culture is incubating and being continuously monitored for growth. Final report to follow. 04/25/18 13:36 Blood Culture - Preliminary Peripheral Venipuncture Culture is incubating and being continuously monitored for growth. Final report to follow. - Clinical Findings Intake & Output: Intake & Output 04/26/18 04/26/18 04/27/18 15:59 23:59 07:59 Intake Total 150 / 150 462 / 462 927 / 927 Output Total 200 / 200 400 / 400 500 / 500 Balance -50 / -50 62 / 62 427 / 427 Weight 85.9 kg
[2018-04-27] MEDS ORDERED: hydrALAZINE 10 MG TABLET PO PRN (08:21)
[2018-04-27] MEDS: Baclofen 10 MG TABLET PO SCH ×3 (11:32→20:03)
[2018-04-27] MEDS: Chlorhexidine Rinse 15 ML MOUTHWASH MM SCH ×2 (11:35→19:32)
[2018-04-27] MEDS: Pantoprazole 40 MG VIAL IVP SCH (11:35)
[2018-04-27] MEDS ORDERED: *HR* Metoprolol 5 MG/5 ML VIAL IVP PRN (15:39)
[2018-04-27 20:58] LABS: BUN/Creatinine Ratio 16 (6-26); Blood Urea Nitrogen 13 mg/dL (8-23); Calcium 8.9 mg/dL (8.6-10.3); Carbon Dioxide 26 mEq/L (23-29); Chloride 103 mEq/L (98-107); Glucose 113 mg/dL (70-105); Osmolality,Calculated 289 (280-300); Potassium 3.4 mEq/L (3.5-5.1); Sodium 139 mEq/L (136-145); eGFR For Non-African Americans > 60 (> 60)
[2018-04-28] MEDS: Artificial Tears SOLN 15 ML BOTTLE BOTH EYES SCH (03:31)
[2018-04-28] MEDS: *HR* Heparin 5,000 UNIT/ML VIAL SQ SCH ×2 (05:25→18:10)
[2018-04-28] MEDS ORDERED: Chloraseptic Spray 177 ML BOTTLE MM PRN ×2 (05:53→08:35)
[2018-04-28 06:06] LABS: Basophils % 0.4 %; Eosinophils % 0.1 %; Hematocrit 41.9 % (37.5-50.1); Hemoglobin 14.2 g/dL (12.9-16.9); Immature Granulocytes % 0.2 % (0-4); Lymphocytes # 0.7 K/mcL (0.6-4.6); Lymphocytes % 8.1 %; Mean Corpuscular HGB Conc 33.9 g/dL (31.6-35.5); Mean Corpuscular Hemoglobin 29.2 pg (28.0-33.3); Mean Platelet Volume 10.8 fL (9.4-12.4); Monocytes % 10.5 %; Neutrophils # 7.3 K/mcL (1.6-8.9); Platelet Count 136 K/mcL (140-400); Red Blood Count 4.87 M/mcL (4.19-5.50); Segmented Neutrophils % 80.7 %
[2018-04-28 06:25] LABS: BUN/Creatinine Ratio 18 (6-26); Blood Urea Nitrogen 15 mg/dL (8-23); Calcium 9.1 mg/dL (8.6-10.3); Carbon Dioxide 27 mEq/L (23-29); Chloride 107 mEq/L (98-107); Glucose 148 mg/dL (70-105); Osmolality,Calculated 282 (280-300); Potassium 3.3 mEq/L (3.5-5.1); Sodium 134 mEq/L (136-145); eGFR For Non-African Americans > 60 (> 60)
[2018-04-28] MEDS ORDERED: Potassium Chloride Elixir 20 MEQ/15 ML UDC PO ONE (06:34)
--- NOTE | 2018-04-28 06:57 | Pulmonology Progress Note ---
<Rajeev Padilla - Last Filed: 04/28/18 08:28> Date of Encounter: 04/28/18 Time of Encounter: 06:54 Assessment and Plan (1) Acute respiratory failure Current Visit: Yes Status: Acute Resolved. Patient successfully extubated yesterday and is stable from respiratory standpoint. Continue oxygen supplementation as needed to keep oxygen saturation above 88%. Qualifiers: Respiratory failure complication: unspecified whether with hypoxia or hypercapnia Qualified Code(s): J96.00 - Acute respiratory failure, unspecified whether with hypoxia or hypercapnia (2) Acute encephalopathy Current Visit: Yes Status: Acute Resolved, likely due to baclofen overdose. (3) Overdose Current Visit: Yes Status: Acute Likely secondary to baclofen. Patient reports that he was taking extra doses due to right leg pain. He denies any suicidal ideation and states he is only trying to treat his pain and denies intentionally overdosing. Baclofen has been restarted. Qualifiers: Encounter type: initial encounter Injury intent: undetermined intent Qualified Code(s): T50.904A - Poisoning by unspecified drugs, medicaments and biological substances, undetermined, initial encounter (4) Aspiration pneumonia Current Visit: Yes Status: Acute Possible. Patient received 3 days of Unasyn and has remained stable. This is been held as concern for aspiration pneumonia is low. We will continue to monitor and if patient has worsening fevers or leukocytosis can consider restarting antibiotics. Qualifiers: Aspiration pneumonia type: unspecified Laterality: left Lung location: lower lobe of lung Qualified Code(s): J69.0 - Pneumonitis due to inhalation of food and vomit (5) Hypertension Current Visit: Yes Status: Acute Stable. Restart home medications. When necessary hydralazine has been ordered for elevated blood pressures. Qualifiers: Hypertension type: essential hypertension Qualified Code(s): I10 - Essential (primary) hypertension (6) GERD (gastroesophageal reflux disease) Current Visit: Yes Status: Acute Discontinue IV PPI and transition to home PPI. Qualifiers: Esophagitis presence: esophagitis presence not specified Qualified Code(s) : K21.9 - Gastro-esophageal reflux disease without esophagitis (7) History of CVA (cerebrovascular accident) Current Visit: Yes Status: Acute With chronic left-sided deficits. No new deficits noted. Consult speech, physical therapy, occupational therapy. (8) DVT prophylaxis Current Visit: Yes Status: Acute Heparin 5000 units subcutaneous twice a day Subjective Principal diagnosis: alterd mental status Interval history: Patient seen and examined at bedside. Patient states that he feels pretty good this morning. He does report a mild sore throat and nonproductive cough. He had some fevers yesterday but no fevers overnight. He denies pain. He denies difficulty swallowing or coughing with eating or drinking. Objective PUL Vital signs: Last Vital Signs Temp 98.3 F 04/28/18 04:39 Pulse 78 04/28/18 06:00 Resp 22 04/28/18 06:00 BP 147/85 04/28/18 06:00 Pulse Ox 96 04/28/18 06:00 General appearance: no acute distress ENT: oropharynx moist Effort: normal Auscultation: bilateral: clear Cardiovascular: regular rate and rhythm Gastrointestinal: normoactive bowel sounds, soft, non-tender Integumentary: normal Extremities: no cyanosis, no edema, no clubbing CN II-XII normal, other (Weakness to LUE and LLE, chronic) Results - Laboratory Findings CBC and BMP: 04/28/18 05:47 04/28/18 05:47 ABG ABG pH 7.48 pH Units (7.32-7.45) H 04/27/18 05:25 ABG pCO2 34 mmHg (35-45) L 04/27/18 05:25 ABG pO2 86 mmHg (85-104) 04/27/18 05:25 ABG O2 Saturation 97 % (95-98) 04/27/18 05:25 PT/INR, D-dimer PT 12.0 Seconds (9.4-12.1) 04/26/18 05:48 Abnormal lab findings: Abnormal lab results Plt Count 136 K/mcL (140-400) L 04/28/18 05:47 ABG pH 7.48 pH Units (7.32-7.45) H 04/27/18 05:25 ABG pCO2 34 mmHg (35-45) L 04/27/18 05:25 Sodium 134 mEq/L (136-145) L 04/28/18 05:47 Potassium 3.3 mEq/L (3.5-5.1) L 04/28/18 05:47 Glucose 148 mg/dL (70-105) H 04/28/18 05:47 POC Glucose 113 mg/dL (70-99) H 04/27/18 11:13 Creatine Kinase 342 Units/L (30-223) H 04/26/18 05:48 Troponin I 0.04 ng/mL (< 0.04) H* 04/25/18 19:25 - Microbiology Findings Microbiology Findings: Microbiology, Last 48 Hours 04/26/18 06:21 Sputum Culture - Preliminary Sputum - Clinical Findings Intake & Output: Intake & Output 04/27/18 04/27/18 04/28/18 15:59 23:59 07:59 Intake Total 100 / 100 Output Total 1775 / 1775 950 / 950 400 / 400 Balance -1675 / -1675 -950 / -950 -400 / -400 Weight 81.3 kg Consult Discharge Plan - Plan Referrals: Stan Ambriz MD [Primary Care Provider] - <Gisselle Catalan - Last Filed: 04/28/18 13:18> Date of Encounter: 04/28/18 Objective PUL Vital signs: Last Vital Signs Temp 98.7 F 04/28/18 11:45 Pulse 89 04/28/18 08:00 Resp 22 04/28/18 08:00 BP 144/87 04/28/18 08:00 Pulse Ox 95 04/28/18 08:00 Results - Laboratory Findings CBC and BMP: 04/28/18 05:47 04/28/18 05:47 ABG ABG pH 7.48 pH Units (7.32-7.45) H 04/27/18 05:25 ABG pCO2 34 mmHg (35-45) L 04/27/18 05:25 ABG pO2 86 mmHg (85-104) 04/27/18 05:25 ABG O2 Saturation 97 % (95-98) 04/27/18 05:25 PT/INR, D-dimer PT 12.0 Seconds (9.4-12.1) 04/26/18 05:48 Abnormal lab findings: Abnormal lab results Plt Count 136 K/mcL (140-400) L 04/28/18 05:47 ABG pH 7.48 pH Units (7.32-7.45) H 04/27/18 05:25 ABG pCO2 34 mmHg (35-45) L 04/27/18 05:25 Sodium 134 mEq/L (136-145) L 04/28/18 05:47 Potassium 3.3 mEq/L (3.5-5.1) L 04/28/18 05:47 Glucose 148 mg/dL (70-105) H 04/28/18 05:47 POC Glucose 113 mg/dL (70-99) H 04/27/18 11:13 Creatine Kinase 342 Units/L (30-223) H 04/26/18 05:48 Troponin I 0.04 ng/mL (< 0.04) H* 04/25/18 19:25 - Microbiology Findings Microbiology Findings: Microbiology, Last 48 Hours 04/26/18 06:21 Sputum Culture - Preliminary Sputum - Clinical Findings Intake & Output: Intake & Output 04/27/18 04/28/18 04/28/18 23:59 07:59 15:59 Output Total 950 / 950 550 / 550 100 / 100 Balance -950 / -950 -550 / -550 -100 / -100 Weight 81.3 kg - Attending Attestation I saw and evaluated this patient and my medical decision-making was reviewed with the Resident Physician. I agree with the documented findings, disposition and treatment plan as described except to the extent set forth below. We independently had [id number] contact with the patient Patient seen and examined at bedside Labs, radiology, chart personally reviewed. Management was reviewed during multidisciplinary critical care rounds. 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 Continue to liberate oxygen as tolerated. Patient does not show signs of aspiration pneumonia we will continue holding off antibiotics. Cards: Patient is hemodynamically stable . Euvolemic on exam FEN-GI: Speech consult to follow speech recommendations Renal: Labs and urine output reviewed ID: No Active infectious source Heme/Onc: Labs reviewed to continue thromboprophylaxis Endo: Glucose Monitored Integ/MSK: Skin Care per routine ICU Nursing Protocol to prevent ulcers. Lines: All lines examined without evidence of infection : Dispo: Patient will need PT OT to transferred to medical telemetry under hospitalist CODE: Full code
[2018-04-28] MEDS ORDERED: Naloxone 0.4 MG/ML INJ IVP PRN (08:35)
[2018-04-28] MEDS ORDERED: Finasteride 5 MG TABLET PO SCH (09:00)
[2018-04-28] MEDS ORDERED: amLODIPine 5 MG TABLET PO SCH (09:00)
[2018-04-28] MEDS: Finasteride 5 MG TABLET PO SCH (09:45)
[2018-04-28] MEDS: amLODIPine 5 MG TABLET PO SCH (09:45)
[2018-04-28] MEDS: Baclofen 10 MG TABLET PO SCH ×3 (09:45→21:10)
--- NOTE | 2018-04-28 12:50 | Event Note ---
Date of Encounter: 04/28/18 Time of Encounter: 12:50 A sign out was provided to the admitting hospitalist, Dr. Martin, who accepted the patient in transfer.
[2018-04-29 05:40] LABS: Basophils % 0.4 %; Eosinophils % 0.4 %; Hematocrit 44.4 % (37.5-50.1); Hemoglobin 15.1 g/dL (12.9-16.9); Immature Granulocytes % 0.2 % (0-4); Lymphocytes # 0.9 K/mcL (0.6-4.6); Lymphocytes % 10.4 %; Mean Corpuscular Hemoglobin 29.7 pg (28.0-33.3); Mean Corpuscular Volume 87.2 fL (83.0-100.0); Mean Platelet Volume 10.7 fL (9.4-12.4); Monocytes # 0.7 K/mcL (0.0-1.3); Monocytes % 7.8 %; Neutrophils # 6.7 K/mcL (1.6-8.9); Platelet Count 154 K/mcL (140-400); Red Blood Count 5.09 M/mcL (4.19-5.50); Red Cell Distribution Width 12.8 % (11.5-14.5); Segmented Neutrophils % 80.8 %
[2018-04-29] MEDS: *HR* Heparin 5,000 UNIT/ML VIAL SQ SCH ×2 (05:47→17:41)
[2018-04-29 06:09] LABS: BUN/Creatinine Ratio 19 (6-26); Blood Urea Nitrogen 16 mg/dL (8-23); Calcium 9.3 mg/dL (8.6-10.3); Carbon Dioxide 26 mEq/L (23-29); Chloride 105 mEq/L (98-107); Glucose 136 mg/dL (70-105); Magnesium 2.2 mg/dL (1.6-2.6); Osmolality,Calculated 293 (280-300); Potassium 3.5 mEq/L (3.5-5.1); Sodium 140 mEq/L (136-145); eGFR For Non-African Americans > 60 (> 60)
[2018-04-29] MEDS: Baclofen 10 MG TABLET PO SCH ×3 (09:18→21:03)
[2018-04-29] MEDS: Finasteride 5 MG TABLET PO SCH (09:18)
[2018-04-29] MEDS: amLODIPine 5 MG TABLET PO SCH (09:18)
--- NOTE | 2018-04-29 09:42 | Internal Med Progress Note ---
Hospitalist Progress Note - Encounter Date of Encounter: 04/29/18 Time of Encounter: 09:39 - Subjective Interval History: Patient with history of COPD, hypertension, GERD, CVA, obesity. Patient was admitted due to respiratory failure and for possible baclofen overdose patient was intubated and treated in icu . also being treated for aspiration pneumonia and then extubated yesterday and transferred out of ICU Today patient is stable said he is breathing better exams to have bilateral rhonchi mild wheezing appears comfortable on room air - Exam Vitals: Temp Pulse Resp BP Pulse Ox 98.0 F 70 16 154/92 96 04/29/18 06:20 04/29/18 06:20 04/29/18 06:20 04/29/18 06:20 04/29/18 06:20 Exam: heent unremarkable chest bilat rhonchi cv RRR s1 and s 2 normal abd soft ext no pitting edema - Assessment and Plan (1) Acute encephalopathy Current Visit: Yes Status: Resolved Assessment and Plan: resolved (2) Acute respiratory failure Current Visit: Yes Status: Resolved Assessment and Plan: resolving likley due to overdose (3) Aspiration pneumonia Current Visit: Yes Status: Acute Assessment and Plan: will continue on unasyn (4) CVA (cerebral vascular accident) Current Visit: Yes Status: Chronic Assessment and Plan: no new event (5) GERD (gastroesophageal reflux disease) Current Visit: Yes Status: Chronic (6) Hypertension Current Visit: Yes Status: Chronic Assessment and Plan: continue current meds (7) Sepsis Current Visit: Yes Status: Resolved Assessment and Plan: resoved - Time Spent with Patient Total time spent is greater than 50% in coordination of care (as documented) at patient's floor/unit and/or counseling patient: 25 - 35 minutes Internal Medicine: Result - Labs CBC & Chem 7: 04/29/18 05:03 04/29/18 05:03 Labs: Short CBC 04/29/18 Range/Units 05:03 WBC 8.3 (4.3-11.1) K/mcL Hgb 15.1 (12.9-16.9) g/dL Hct 44.4 (37.5-50.1) % Plt Count 154 (140-400) K/mcL Neutrophils # 6.7 (1.6-8.9) K/mcL BMP 04/29/18 05:03 Sodium 140 Potassium 3.5 Chloride 105 Carbon Dioxide 26 BUN 16 Creatinine 0.84 Glucose 136 H Calcium 9.3 - ABG Interpretation ABG results: ABG ABG pH 7.48 pH Units (7.32-7.45) H 04/27/18 05:25 ABG pCO2 34 mmHg (35-45) L 04/27/18 05:25 ABG pO2 86 mmHg (85-104) 04/27/18 05:25 ABG O2 Saturation 97 % (95-98) 04/27/18 05:25 PT/INR, D-dimer PT 12.0 Seconds (9.4-12.1) 04/26/18 05:48 - VTE Documentation of Mechanical Device: Intermittent pneumatic compression device Consult Discharge Plan - Plan Referrals: Stan Ambriz MD [Primary Care Provider] - (2) Acute respiratory failure Qualifiers: Respiratory failure complication: unspecified whether with hypoxia or hypercapnia Qualified Code(s): J96.00 - Acute respiratory failure, unspecified whether with hypoxia or hypercapnia (3) Aspiration pneumonia Qualifiers: Aspiration pneumonia type: unspecified Laterality: left Lung location: lower lobe of lung Qualified Code(s): J69.0 - Pneumonitis due to inhalation of food and vomit (4) CVA (cerebral vascular accident) Qualifiers: CVA mechanism: unspecified Qualified Code(s): I63.9 - Cerebral infarction, unspecified (5) GERD (gastroesophageal reflux disease) Qualifiers: Esophagitis presence: without esophagitis Qualified Code(s): K21.9 - Gastro- esophageal reflux disease without esophagitis (6) Hypertension Qualifiers: Hypertension type: essential hypertension Qualified Code(s): I10 - Essential (primary) hypertension (7) Sepsis Qualifiers: Sepsis type: sepsis due to unspecified organism Qualified Code(s): A41.9 - Sepsis, unspecified organism
[2018-04-30] MEDS: *HR* Heparin 5,000 UNIT/ML VIAL SQ SCH ×2 (05:29→18:28)
[2018-04-30] MEDS: Finasteride 5 MG TABLET PO SCH (09:00)
[2018-04-30] MEDS: amLODIPine 5 MG TABLET PO SCH (09:00)
[2018-04-30] MEDS: Baclofen 10 MG TABLET PO SCH ×2 (09:00→14:54)
[2018-04-30 11:09] VITALS: BP 122/73
--- NOTE | 2018-04-30 16:40 | Discharge Summary ---
- NOTES TO OUTPATIENT PROVIDER Notes to Outpatient Provider: f/u with PCP in one week Date of Encounter: 04/30/18 Time of Encounter: 13:00 - Discharge Diagnosis (1) Acute respiratory failure Priority: Primary Status: Resolved Qualifiers: Respiratory failure complication: unspecified whether with hypoxia or hypercapnia Qualified Code(s): J96.00 - Acute respiratory failure, unspecified whether with hypoxia or hypercapnia (2) Acute encephalopathy Priority: Primary Status: Resolved (3) Overdose Priority: Primary Status: Acute Qualifiers: Encounter type: initial encounter Injury intent: undetermined intent Qualified Code(s): T50.904A - Poisoning by unspecified drugs, medicaments and biological substances, undetermined, initial encounter (4) Aspiration pneumonia Priority: Secondary Status: Acute Qualifiers: Aspiration pneumonia type: unspecified Laterality: left Lung location: lower lobe of lung Qualified Code(s): J69.0 - Pneumonitis due to inhalation of food and vomit (5) History of CVA (cerebrovascular accident) Priority: Secondary Status: Acute (6) GERD (gastroesophageal reflux disease) Priority: Secondary Status: Chronic Qualifiers: Esophagitis presence: without esophagitis Qualified Code(s): K21.9 - Gastro -esophageal reflux disease without esophagitis (7) Hypertension Priority: Secondary Status: Chronic Qualifiers: Hypertension type: essential hypertension Qualified Code(s): I10 - Essential (primary) hypertension Hospital course: Mr. Alcantar is a 72 y/o M with with history of COPD not on home O2, hypertension , GERD, CVA and chronic pain medication due to back pain with Baclofen also takes valium who lives by himself was brought into ER with altered mental status. Pt seeme be on respiratory failure due to baclofen overdose. He got intubated and admitted into our ICU. Initially there was concern for aspiration pneumonia and sepsis he was placed on empirical abx too. He got extubated 2 days ago and trasnefrred to [facility] for [facility] care. Pt seems to back to baseline. He was seen by PT / OT who recommend ECF placement for short term PT / OT. I did drug and alcohol counselor the pt about his high dose of Baclofen and Valium and recommend to wean him off the meds slowly. - Time Spent with Patient Total time spent providing and/or coordinating discharge services: - Discharge Medications Prescriptions: Albuterol Sulfate [Albuterol Inhaler] 2 puff IH Q4HR PRN #1 inhaler PRN Reason: Shortness Of Breath/Wheezing Baclofen 10 mg PO BID PRN #15 tablet PRN Reason: Spasms diazePAM [Valium] 2.5 mg PO BID PRN 5 Days #10 tablet PRN Reason: Anxiety Home Medications: Atorvastatin Calcium [Lipitor] 80 mg PO HS 04/25/18 [History] DULoxetine [Cymbalta] 30 mg PO DAILY 04/25/18 [History] Finasteride [Proscar] 5 mg PO DAILY 04/25/18 [History] Omeprazole [PriLOSEC] 40 mg PO DAILY 04/25/18 [History] Tamsulosin [Flomax] 0.4 mg PO DAILY 04/25/18 [History] amLODIPine [Norvasc] 5 mg PO DAILY 04/25/18 [History] Albuterol Sulfate [Albuterol Inhaler] 2 puff IH Q4HR PRN #1 inhaler 04/30/18 [Rx ] Baclofen 10 mg PO BID PRN #15 tablet 04/30/18 [Rx] diazePAM [Valium] 2.5 mg PO BID PRN 5 Days #10 tablet 04/30/18 [Rx] Allergies/Adverse Reactions: 3 Allergy/AdvReac Type Severity Reaction Status Date / Time gabapentin Allergy Unknown unknown Verified 04/25/18 14:12 morphine Allergy Unknown unknown Verified 04/25/18 14:12 Date of admission: 04/25/18 12:46 Primary care physician: Stan Ambriz MD Consults: 04/28/18 06:51 Consult to Occupational Therapy [CONS] Routine Comment: Evaluate, develop and implement POC Reason for Consult: Weakness, hx of stroke Does patient have active BEDREST order?: No Is patient medically & hemodynamically stable?: Yes Consult to Physical Therapy [CONS] Routine Comment: Evaluate, develop and implement POC Reason for Consult: Weakness, hx of stroke Does patient have active BEDREST order?: No Is patient medically & hemodynamically stable?: Yes - Constitutional Vitals: Temp Pulse Resp BP Pulse Ox 99.1 F 62 16 122/73 94 04/30/18 11:00 04/30/18 11:00 04/30/18 11:00 04/30/18 11:00 04/30/18 11:00 General appearance: Present: A&O X 3 Exam: see below - Head Head exam: Present: atraumatic, normal inspection - Neck Neck exam general surgery: Present: supple - Respiratory Respiratory exam: Present: decreased breath sounds. Absent: rales, respiratory distress, rhonchi, wheezes - Cardiovascular Cardiovascular exam: Present: +S1, +S2. Absent: tachycardia - GI/Abdominal GI/Abdominal exam: Present: normal bowel sounds, soft. Absent: rebound, rigid, tenderness - Extremities Exam Extremities exam: Absent: calf tenderness, pedal edema, tenderness - Back Exam Back exam: Absent: CVA tenderness (L), CVA tenderness (R) - Neurological Exam Neurological exam: Present: alert, oriented X3 - Psychiatric Psychiatric exam: Present: normal affect, normal mood - Skin Skin exam: Absent: rash - Patient Status Disposition: Transfer SNF Condition: Good Overall status at discharge: patient is back to baseline - Discharge Instructions Follow Up With: Stan Ambriz MD [Primary Care Provider] - - Diet and Activity Activity: increase activity as tolerated Diet: low salt diet - VTE Documentation of Mechanical Device: Intermittent pneumatic compression device
--- NOTE | 2018-04-30 16:47 | Physician Discharge Referral ---
ExtendedCare Referral Info Transfer To: F Provider in Charge after Transfer: PCP Institutional Level of Care: Skilled - Diagnosis (1) Acute respiratory failure Status: Resolved (2) Acute encephalopathy Status: Resolved (3) Overdose Status: Acute (4) Aspiration pneumonia Status: Acute (5) History of CVA (cerebrovascular accident) Status: Acute (6) GERD (gastroesophageal reflux disease) Status: Chronic (7) Hypertension Status: Chronic - Transfer Medications Prescriptions: Albuterol Sulfate [Albuterol Inhaler] 2 puff IH Q4HR PRN #1 inhaler PRN Reason: Shortness Of Breath/Wheezing Baclofen 10 mg PO BID PRN #15 tablet PRN Reason: Spasms diazePAM [Valium] 2.5 mg PO BID PRN 5 Days #10 tablet PRN Reason: Anxiety Home Medications: Atorvastatin Calcium [Lipitor] 80 mg PO HS 04/25/18 [History] DULoxetine [Cymbalta] 30 mg PO DAILY 04/25/18 [History] Finasteride [Proscar] 5 mg PO DAILY 04/25/18 [History] Omeprazole [PriLOSEC] 40 mg PO DAILY 04/25/18 [History] Tamsulosin [Flomax] 0.4 mg PO DAILY 04/25/18 [History] amLODIPine [Norvasc] 5 mg PO DAILY 04/25/18 [History] Albuterol Sulfate [Albuterol Inhaler] 2 puff IH Q4HR PRN #1 inhaler 04/30/18 [Rx ] Baclofen 10 mg PO BID PRN #15 tablet 04/30/18 [Rx] diazePAM [Valium] 2.5 mg PO BID PRN 5 Days #10 tablet 04/30/18 [Rx] Allergies/Adverse Reactions: 3 Allergy/AdvReac Type Severity Reaction Status Date / Time gabapentin Allergy Unknown unknown Verified 04/25/18 14:12 morphine Allergy Unknown unknown Verified 04/25/18 14:12 - Respiratory Orders Smoking Cessation: Smoking cessation has been advised. For more information, call the [place] Quit Line at 1-710-CBLQNOW. CERTIFICATION: I certify that the transfer of the above named patient to an Extended Care Facility is necessary for the continuing treatment of the diagnosis listed. The above information is true and accurate reflection of patient's current condition. Confidential - Redisclosure prohibited without a patient's written consent.
== END 2018-04-30 19:42 | DRG 871 ==
LOC: ICNU 12:46 → 3ANU 04-28 13:34
PROVIDERS: ADMIT Internal Medicine Hospice and Palliative Medicine; ATTEND Internal Medicine Hospice and Palliative Medicine